=== PATIENT | male | born 1980 | race Caucasian/White ===

== ENCOUNTER 2020-12-23 15:51 | Emergency (ER) | payer OTHER, SELFPAY ==
--- NOTE | ~2020-12-23 | XR_ITS ---
XR ankle LT min 3V 12/23/2020 16:10 INDICATION: Left ankle pain PROCEDURE: 4 views left COMPARISON: No prior studies for comparison. FINDINGS: Fracture, dislocation or subluxation is not identified. The soft tissues appear within norm al limits. No foreign bodies are identified. IMPRESSION: 1: NO ACUTE BONE OR JOINT ABNORMALITY IDENTIFIED. Reviewed, dictated and finalized at location B.
[2020-12-23 16:01] VITALS: BP 150/95; PULSE 96; RESP 16; TEMP 37.4; O2SAT 99
--- NOTE | 2020-12-23 16:10 | ED.EXTPRO ---
HPI - Extremity Problem General Chief complaint: Extremity Injury, Lower Stated complaint: left foot/ankle pain Time Seen by Provider: 12/23/20 16:10 Source: patient and RN notes reviewed Mode of arrival: ambulatory Limitations: no limitations History of Present Illness HPI Narrative: Isidro is a 40-year-old male patient ambulate did into the [employer]. Patient states 1 week ago he was camping and walked into the fire ring. Patient has an abrasion on his left pérez bruising around his left ankle and foot. Patient has patient has been you cleaning the wound twice daily. Patient has been using Neosporin and a bandage to abrasion. MD Complaint: joint swelling Related Data Allergies Allergy/AdvReac Type Severity Reaction Status Date / Time No Known Allergies Allergy Mild Unverified 05/30/13 17:22 Review of Systems Review of Systems: CONSTITUTIONAL: Denies body aches, fever, chills, or sweats. EYES: Denies visual changes, redness, or discharge. ENT: Denies rhinorrhea, congestion, sore throat, or otalgia. CARDIOVASCULAR: Denies chest pain, palpitations, or edema. RESPIRATORY: Denies cough or dyspnea. GASTROINTESTINAL: Denies abdominal pain, nausea, vomiting, or diarrhea. GENITOURINARY: Denies dysuria or hematuria. SKIN: Denies rash, itching, large abrasion left pérez with erythema and warmth MUSCULOSKELETAL: Denies back pain, swelling and pain left ankle NEUROLOGIC: Denies headache, numbness, tingling, or weakness. PSYCH: Denies depression or anxiety. PMFSH Comments At time of signature, I have reviewed and agree with nursing past medical, surgical, social and family history unless otherwise noted. Please see nursing chart for further information. There is no relevant family history pertinent to the presenting complaint Exam Narrative: GENERAL: Well-appearing, well-nourished, and in no acute distress. HEAD: Normocephalic, atraumatic. EYES: EOMI. No redness or drainage. Conjunctivae normal. ENT: Mucous membranes pink and moist. Nares clear. No rhinorrhea. NECK: Normal AROM. Supple. MUSCULOSKELETAL: No bony tenderness.; bruising and moderate edema to left medial malleolus, purple bruising to dorsal foot, minimal edema EXTREMITIES: Normal range of motion. SKIN: Warm, dry, no rash. Capillary refill normal. Normal skin turgor; y shaped 5cm abrasion to left pérez, erythematous, warm to touch, green drainage NEURO: No focal deficits. Alert and oriented x3. Gait steady. PSYCH: Normal affect. No signs of depression or anxiety. Course Vital Signs Vital signs: Vital Signs Temperature 37.4 C 12/23/20 16:01 Pulse Rate 96 12/23/20 16:01 Respiratory Rate 16 12/23/20 16:01 Blood Pressure 150/95 H 12/23/20 16:01 Pulse Oximetry 99 12/23/20 16:01 Temperature 37.4 C 12/23/20 16:01 Pulse Rate 96 12/23/20 16:01 Respiratory Rate 16 12/23/20 16:01 Blood Pressure 150/95 H 12/23/20 16:01 Pulse Oximetry 99 12/23/20 16:01 Reviewed. Pt has been instructed to follow up with his PCP regarding his elevated blood pressure today. MDM - Extremity (Nontraumatic) Differential Diagnosis Differential diagnosis: Likely lower extremity edema and other (Ankle fracture, sprained ankle, superficial abrasion) Critical Care Time Critical Care Time Critical Care Time: No Discharge Plan Discharge Clinical Impression: Ankle sprain and strain Cellulitis Qualifiers: Site of cellulitis: extremity Site of cellulitis of extremity: lower extremity Laterality: left Qualified Code(s): L03.116 - Cellulitis of left lower limb Patient Disposition: Home, Self-Care Condition: Stable Instructions: Antibiotic Form, Cellulitis (ED) Additional Instructions: Wash area twice daily with mild soap and water. Wear jenny wrap to left ankle. May use ice for swelling. Take Motrin for pain /inflammation--May take 4 tablets( 200mg ) three times daily. Wear sturdy shoes, elevate ankle when at rest. Follow up with pr
== END 2020-12-23 16:37 | disposition home or self-care (01) ==
PROVIDERS: Emergency Provider Nurse Practitioner Family
DX: S93.402A Sprain of unspecified ligament of left ankle, initial encounter (principal); S96.912A Strain of unspecified muscle and tendon at ankle and foot level, left foot, initial encounter; W22.8XXA Striking against or struck by other objects, initial encounter; L03.116 Cellulitis of left lower limb
CPT/HCPCS: 73610; 99213; G0463

== ENCOUNTER 2023-08-16 10:31 | Observation (INO) | payer OTHER, SELFPAY ==
[2023-08-16] VITALS (35 sets, daily range): BP systolic 90–140; BP diastolic 67–95; PULSE 80–108; RESP 10–24; TEMP 36.1–36.9; O2SAT 94–100; BMI 32.8
--- NOTE | ~2023-08-16 | XR_ITS ---
EXAMINATION: XR chest 2V 08/16/2023 11:12 INDICATION: Chest pain PROCEDURE: 2 view chest COMPARISON: No prior studies for comparison. FINDINGS: The lungs are clear. The cardiomediastinal silhouette is within normal limits. There are no pleural effusions. There is no pneumothorax suspected. IMPRESSION: 1: NO ACUTE CARDIOPULMONARY DISEASE. Reviewed, dictated and finalized at location B.
--- NOTE | 2023-08-16 10:32 | ECG_ITS ---
Test Date: 2023-08-16 10:38:49 Measurements Intervals [place] Rate: 80 P: 61 MI: 162 QRS: -2 QRSD: 97 T: 31 QT: 356 QTc: 412 Interpretive Statements SINUS RHYTHM LOW QRS VOLTAGE IN PRECORDIAL LEADS [QRS DEFLECTION < 1.0 mV IN CHEST LEADS] INCOMPLETE RIGHT BUNDLE BRANCH BLOCK No previous ECG available for comparison Electronically Signed On 08-16-2023 10:54:18 CDT by Abhijit Jiménez M.D.
[2023-08-16] MEDS: ASPIRIN 81 MG CHEWABLE TABLET 324 MG PO (10:42)
[2023-08-16 10:54] LABS: Basophils Percent Auto 0.4 % (0.2-1.2); Eosinophils Absolute Auto 0.1 K/mm3 (0-0.3); Eosinophils Percent Auto 1.4 % (0-4.4); Hematocrit 45.7 % (42.0-52.0); Hemoglobin 15.1 g/dL (14.0-18.0); Immature Granulocyte Absolute 0.02 K/mm3 (0.00-0.031); Immature Granulocyte Percent A 0.3 % (0-0.5); Lymphocytes Absolute Auto 0.94 K/mm3 (0.9-3.2); Mean Corpuscular Hemoglobin 29.1 pg (26-34); Mean Corpuscular Volume 88.1 fl (80-100); Mean Platelet Volume 9.9 fl (7.4-10.4); Monocytes Absolute Auto 0.9 K/mm3 (0.1-0.6); Monocytes Percent Auto 11.9 % (2.6-8.5); Neutrophils Absolute Auto 5.3 K/mm3 (1.3-6.7); Platelet Count Result 174 k/mm3 (150-375); Red Blood Count 5.19 M/mm3 (4.6-6.20); Red Cell Distribution Width 13.9 % (11.5-14.5); White Blood Count 7.3 K/mm3 (4.5-10.0)
[2023-08-16 11:04] LABS: Partial Thromboplastin Time 31.3 Seconds (22.3-36.8); Prothrombin Time 13.5 Seconds (11.1-14.7)
--- NOTE | 2023-08-16 11:05 | ED.CHESTPAIN ---
HPI - Chest Pain General Chief Complaint: Chest Pain <Anjelica Garcia PA-C - Last Filed: 08/16/23 13:20> Stated Complaint: chest pain <VINCENT Nguyen Last Filed: 08/16/23 13:20> Time Seen by Provider: 08/16/23 10:55 <VINCENT Nguyen Last Filed: 08/16/23 13:20> Source: patient <VINCENT Nguyen Last Filed: 08/16/23 13:20> Mode of arrival: ambulatory <VINCENT Nguyen Last Filed: 08/16/23 13:20> Limitations: no limitations <VINCENT Nguyen Last Filed: 08/16/23 13:20> History of Present Illness HPI narrative: This is a 43 year old male that presents to the ER for chest pain ongoing since last night. Reports he abdominal from work last night and had a fever of 100. He felt generally unwell and had some sweats during the day. Last night after eating some soup in bed. He started to experience substernal chest discomfort. He describes as a pressure. This lasted for several hours. He took a muscle relaxer and was able to fall asleep. He woke up this morning with persistent pain. He also reports he has had some pain in his jaw today. He does not have any known history of heart disease. He does report family history. Denies cough, shortness of breath, abdominal pain, vomiting, or diarrhea. <Anjelica Garcia PA-C - Last Filed: 08/16/23 13:20> Related Data Home Medications: Home Medications Medication Instructions Recorded Confirmed lisinopril 10 mg tablet 10 mg PO HS 08/16/23 08/16/23 <VINCENT Nguyen Last Filed: 08/16/23 13:20> Allergies/Adverse Reactions: Allergies Allergy/AdvReac Type Severity Reaction Status Date / Time No Known Allergies Allergy Mild Verified 08/16/23 10:37 <VINCENT Nguyen Last Filed: 08/16/23 13:20> Review of Systems Review of Systems: CONSTITUTIONAL: Reports fever ENT: Denies rhinorrhea, congestion, sore throat CARDIOVASCULAR: Reports chest pain. Denies edema. RESPIRATORY: Denies cough or dyspnea. GASTROINTESTINAL: Denies abdominal pain, nausea, vomiting, or diarrhea. <Anjelica Garcia PA-C - Last Filed: 08/16/23 13:20> All systems reviewed & are unremarkable except as noted in HPI and below <Anjelica Garcia PA-C - Last Filed: 08/16/23 13:20> [facility] Past Medical History Medical History: Medical History (Updated 08/16/23 @ 15:15 by Jeanine Jones DO) Essential hypertension Obesity (BMI 30.0-34.9) Obstructive sleep apnea on CPAP <Anjelica Garcia PA-C - Last Filed: 08/16/23 13:20> Surgical History Surgical History: Surgical History (Updated 08/16/23 @ 15:09 by Jeanine Jones DO) No history of previous surgery <Anjelica Garcia PA-C - Last Filed: 08/16/23 13:20> Family History Family History: Family History (Updated 08/16/23 @ 15:09 by Jeanine Jones DO) Father Heart disease, Onset Age: 60 Mother Arrhythmia <Anjelica Garcia PA-C - Last Filed: 08/16/23 13:20> Social History Social History: Social History (Updated 08/16/23 @ 15:17 by Jeanine Jones DO) Social History: The patient lives with his of approximately 14 years. brittany is at bedside. They have a 16-year-old and 9-year-old child at home. The patient did smoke about half a pack of cigarettes per day for about 5 years but over the last couple of years his only smoked about 5 cigarettes over that same time. He did smoke marijuana quite heavily but cut down in January down to only using marijuana rarely. His last use was August 14, 2023. He does drink 8-10 alcoholic beverages 3 to 4 times a week. Code status: Full code Surrogate decision maker: Brittany () Smoking packs per day: 0.5 Smoking cigarettes per day: 10.0 Years smoked: 3 Smoking pack-years: 1.50 Smoking status: Former smoker Tobacco type: cigarettes Alcohol intake: current Drinks per week: 21 Alcohol use details: 8-10 beers, 3 to 4 times a week Substance use:
[2023-08-16] MEDS: MORPHINE SULFATE (*CRX) 4 MG/ML INJ IV PUSH (11:11)
[2023-08-16] MEDS: PANTOPRAZOLE SODIUM IV 40 MG VIAL IV PUSH (11:11)
[2023-08-16] MEDS: ONDANSETRON INJ 4 MG/2 ML VIAL IV PUSH (11:11)
[2023-08-16 11:17] LABS: Alanine Aminotransferase 55 U/L (6-50); Albumin Level 4.5 g/dL (3.5-5.1); Alkaline Phosphatase 80 U/L (38-126); Anion Gap 8 mmol/L (4-12); Aspartate Amino Transferase 84 U/L (17-59); Bilirubin,Total 0.9 mg/dL (0.2-1.3); Blood Urea Nitrogen 13 mg/dL (9-20); Carbon Dioxide 26 mmol/L (22-30); Chloride 103 mmol/L (98-107); Estimated CRCL calculation 111 ml/min; Estimated Glomerular Filt Rate > 60; Glucose 148 mg/dL (65-110); Lipase 75 U/L (23-300); Potassium 4.2 mmol/L (3.4-5.0); Sodium 137 mmol/L (137-145)
[2023-08-16] MEDS: HEPARIN SOD/D5W 100 UNITS/ML 25,000 UNITS/250 ML BAG 12.24 UNITS IV CONT (11:55)
[2023-08-16] MEDS: HEPARIN SODIUM 5,000 UNITS/ML VIAL 4000 UNITS IV PUSH (12:03)
--- NOTE | 2023-08-16 12:14 | ECG_ITS ---
Test Date: 2023-08-16 12:11:54 Measurements Intervals [place] Rate: 93 P: 44 GA: 164 QRS: -21 QRSD: 97 T: 23 QT: 349 QTc: 434 Interpretive Statements SINUS RHYTHM LOW QRS VOLTAGE IN PRECORDIAL LEADS [QRS DEFLECTION < 1.0 mV IN CHEST LEADS] INCOMPLETE RIGHT BUNDLE BRANCH BLOCK NO SIGNIFICANT CHANGES Electronically Signed On 08-16-2023 16:04:08 CDT by Abhijit Jiménez M.D.
[2023-08-16 12:22] LABS: Influenza A QL RT-PCR Negative (Negative); Influenza B QL RT-PCR Negative (Negative); RSV RNA, RT-PCR Negative (Negative); SARS-CoV-2 RNA PCR Negative (Negative)
[2023-08-16 12:25] LABS: Cholesterol 174 mg/dL (0-200); HDL Direct 31 mg/dL; Triglycerides 226 mg/dL (<150)
--- NOTE | 2023-08-16 12:31 | PM.IMHP ---
H&P: HPI History of Present Illness Date/Time: 08/16/23 12:31 Chief Complaint: Chest pain Narrative: 43-year-old male with a past medical history of obesity, essential hypertension and obstructive sleep apnea who presented to the ER via private vehicle due to chest pain. The patient reported that he had been feeling generally ill for 2 days with body aches, chills and fever up to 100.4?. Is been accompanied by an occasional nonproductive cough. His is at bedside reports the patient also had misfortune of tearing off of portion of his toenail until it bled and then they walked around a fair ground last week. The patient denies any other upper respiratory symptoms, nasal congestion, nausea, vomiting or other symptoms of illness. His chest pain started last night and was substernal in nature. The pain lasted about an hour and half and was unrelieved despite taking cyclobenzaprine and naproxen. Eventually he was able to fall asleep and then woke up at around 08:15 in the morning due to recurrent chest pain. At that time is pain had returned and was a 6/10 in intensity. It radiated up to his jaw and down his left arm. The pain was aching in nature. The pain was relieved after he received morphine in the ER. Initial EKG in the ER demonstrated minimal changes in lead 1 and aVL. Initial troponin was elevated at 9. Patient was evaluated by Cardiology and taken directly to the incinerator plant laborer where he was found to have no evidence of obstructive coronary artery disease. I evaluated the patient after incinerator plant laborer when he was in the [facility]. Review of Systems Review of Systems: 12 systems were reviewed with pertinent positives and negatives per HPI. Except as documented in the HPI, all other systems were reviewed and are negative. Patient does report chronic urinary frequency but reports drinking a lot of water all the time. He denies dysuria. He denies any known ill contacts. [facility] Past Medical History Medical History (Updated 08/16/23 @ 15:15 by Jeanine Jones DO) Essential hypertension Obesity (BMI 30.0-34.9) Obstructive sleep apnea on CPAP Surgical History Surgical History (Updated 08/16/23 @ 15:09 by Jeanine Jones DO) No history of previous surgery Family History Family History (Updated 08/16/23 @ 15:09 by Jeanine Jones DO) Father Heart disease, Onset Age: 60 Mother Arrhythmia Social History Social History (Updated 08/16/23 @ 15:17 by Jeanine oJnes DO) Social History: The patient lives with his of approximately 14 years. brittany is at bedside. They have a 16-year-old and 9-year-old child at home. The patient did smoke about half a pack of cigarettes per day for about 5 years but over the last couple of years his only smoked about 5 cigarettes over that same time. He did smoke marijuana quite heavily but cut down in January down to only using marijuana rarely. His last use was August 14, 2023. He does drink 8-10 alcoholic beverages 3 to 4 times a week. Code status: Full code Surrogate decision maker: Brittany () Smoking packs per day: 0.5 Smoking cigarettes per day: 10.0 Years smoked: 5 Smoking pack-years: 2.50 Smoking status: Former smoker Alcohol intake: current Drinks per week: 30 Alcohol use details: 8-10 beers, 3 to 4 times a week Substance use type: marijuana Meds Home Medications and Allergies Home Medications Medication Instructions Recorded Confirmed Type lisinopril 10 mg tablet 10 mg DAILY 08/16/23 08/16/23 History Allergies Allergy/AdvReac Type Severity Reaction Status Date / Time No Known Allergies Allergy Mild Verified 08/16/23 10:37 Vital Signs Vital Signs - 24 hr 08/16/23 10:34 08/16/23 10:38 08/16/23 10:36 Temperature 97.9 F Pulse Rate 97 86 95 Respiratory Rate 20 17 Blood Pressure 123/95 H Pulse Oximetry 96 96 Oxygen Delivery Room Air 08/16/23 10:45 08/16/23 10:46 08/16/23 11:00 Temp
[2023-08-16 12:36] LABS: LDL Cholesterol Direct 114 mg/dL
--- NOTE | 2023-08-16 12:57 | PM.CNCAR ---
Assessment and Plan Assessment and plan (1) Essential hypertension: Code(s): I10 - Essential (primary) hypertension Status: Acute (2) Chest pain due to myocardial ischemia: Qualifiers: Ischemic chest pain type: unstable angina pectoris Qualified Code(s): I20.0 - Unstable angina Code(s): I25.9 - Chronic ischemic heart disease, unspecified Status: Acute Plan NSTEMI: Given NSTEMI, recommend cardiac catheterization. Discussed procedure with the patient, including indication for cath, procedure details, risks vs benefits, alternative management options, etc. Patient agreeable. Will proceed with [facility] today. Patient loaded with ASA 324 mg x 1 in the ED, continue with ASA 81mg once daily. Start high-intensity statin. Further recommendations and plan pending results of LHC. Hypertension: Continue home Lisinopril. ARETHA: Wears CPAP at home. History of Present Illness History of Present Illness Consult date/time: 08/16/23 12:57 Requesting physician: Anjelica Garcia PA-C Consult reason: chest pain Reason For Visit: NSTEMI Narrative: We are consulted for NSTEMI. This is a 43 year old male with hypertension and ARETHA on CPAP who presented to [place] ER with chest pain. Had substernal chest pain that first began around 11PM last night. Lasted for about an hour and a half. When we woke up this morning, around 8AM, he had recurrence of substernal chest pain with radiation to jaw and left arm, along with some diaphoresis. The chest pain started to improve when he arrived to the ER and resolved after he received Morphine in the ER. Patient has no prior cardiac history. Father had OR in his 60s. No tobacco use. Patient does occasionally smoke marijuana, last use this past weekend, but patient reports that since January, he has only used twice. Drinks about 8 beers per night a few nights a week. EKG shows sinus rhythm, incomplete right bundle branch block. Initial troponin is 9.03. CXR is negative. Review of Systems Review of Systems: All systems reviewed & are unremarkable except as noted in HPI and below (HPI) [facility] Past Medical History Medical History Essential hypertension Obesity (BMI 30.0-34.9) Family History Family History Other Heart disease Social History Social History Smoking status: Never smoker Meds Home Medications and Allergies Home Medications Medication Instructions Recorded Confirmed Type lisinopril 10 mg tablet mg 08/16/23 History Allergies Allergy/AdvReac Type Severity Reaction Status Date / Time No Known Allergies Allergy Mild Verified 08/16/23 10:37 Vital Signs Vital Signs - 24 hr 08/16/23 10:34 08/16/23 10:38 08/16/23 10:36 Temperature 36.6 C Pulse Rate 97 86 95 Respiratory Rate 20 17 Blood Pressure 123/95 H Pulse Oximetry 96 96 Oxygen Delivery Room Air 08/16/23 10:45 08/16/23 10:46 08/16/23 11:00 Temperature Pulse Rate 90 91 87 Respiratory Rate 18 13 16 Blood Pressure 114/88 Pulse Oximetry 98 95 97 Oxygen Delivery 08/16/23 11:01 08/16/23 11:19 08/16/23 11:20 Temperature Pulse Rate 94 99 94 Respiratory Rate 20 12 15 Blood Pressure 114/87 109/85 Pulse Oximetry 96 94 97 Oxygen Delivery 08/16/23 11:31 08/16/23 11:32 Temperature Pulse Rate 93 97 Respiratory Rate 13 14 Blood Pressure 114/81 Pulse Oximetry 97 96 Oxygen Delivery Exam Const: General: comfortable and no acute distress HENMT: Mouth: Yes moist mucous membranes Eyes: General: appearance normal, both eyes and all related structures Sclera: sclerae normal Neck: Neck: supple Resp: Effort & Inspection: normal respiratory effort Auscultation: clear to auscultation bilaterally Cardio: Rate: regular rate Rhythm: regular rhythm Heart sounds: no murmurs Skin: Gener
--- NOTE | 2023-08-16 13:04 | WPDMODSED ---
Moderate Sedation Note-Pt Data Patient Data Diagnosis: NSTEMI Present Complaint: Chest pain Procedure to be performed/Plan: Coronary angiography, left heart cath, +/- PCI Allergies Allergy/AdvReac Type Severity Reaction Status Date / Time No Known Allergies Allergy Mild Verified 08/16/23 10:37 Home Medications Medication Instructions Recorded Confirmed Type lisinopril 10 mg tablet mg 08/16/23 History Current Medications: Active Medications Aspirin (Aspirin 81 Mg Enteric Tablet) 81 mg PO QAM [facility] Heparin Sodium (Porcine) (Heparin Sodium 5,000 Units/Ml Vial) 4,000 units IV PUSH PRN PRN PRN Reason: aPTT less than 55 seconds Heparin Sodium (Porcine) (Heparin Sodium 5,000 Units/Ml Vial) 3,500 units IV PUSH PRN PRN PRN Reason: aPTT 55 - 70 seconds Heparin Sodium/Dextrose (Heparin Sodium/D5w 100 Units/Ml) 25,000 units in 250 mls @ 12.24 mls/hr IV CONT .[id number] [facility]; Protocol Last Admin: 08/16/23 12:15 Dose: Not Given Sedation/Anesthesia: No previous sedation/anesthesia problems (including family history). [facility] Past Medical History Medical History Essential hypertension Obesity (BMI 30.0-34.9) Family History Family History Other Heart disease Social History Social History Smoking status: Never smoker Mod Sed Physical Exam Physical Exam Pre Procedural Exam: Normal: Appearance, Lungs, Heart Rate, Heart Rhythm, Neuro Exam, Abdomen, Extremities and Skin Hours since solid foods: 15 Hours since liquid intake: 8 Mallampati Classification: class III Internal Medicine - PN: Obj Da Vital Signs Vital Signs: Vital Signs - 24 hr 08/16/23 10:34 08/16/23 10:38 08/16/23 10:36 Temperature 36.6 C Pulse Rate 97 86 95 Respiratory Rate 20 17 Blood Pressure 123/95 H Pulse Oximetry 96 96 Oxygen Delivery Room Air 08/16/23 10:45 08/16/23 10:46 08/16/23 11:00 Temperature Pulse Rate 90 91 87 Respiratory Rate 18 13 16 Blood Pressure 114/88 Pulse Oximetry 98 95 97 Oxygen Delivery 08/16/23 11:01 08/16/23 11:19 08/16/23 11:20 Temperature Pulse Rate 94 99 94 Respiratory Rate 20 12 15 Blood Pressure 114/87 109/85 Pulse Oximetry 96 94 97 Oxygen Delivery 08/16/23 11:31 08/16/23 11:32 Temperature Pulse Rate 93 97 Respiratory Rate 13 14 Blood Pressure 114/81 Pulse Oximetry 97 96 Oxygen Delivery Meds/Results Medications: Active Medications Generic Name Dose Route Start Last Admin Trade Name Freq PRN Reason Stop Dose Admin Aspirin 81 mg 08/17/23 09:00 Aspirin 81 Mg [facility]ic [facility] [place] Heparin Sodium (Porcine) 4,000 units 08/16/23 12:04 Heparin Sodium 5,000 Units/Ml Vial IV PUSH PRN PRN aPTT less than 55 seconds Heparin Sodium (Porcine) 3,500 units 08/16/23 12:04 Heparin Sodium 5,000 Units/Ml Vial IV PUSH PRN PRN aPTT 55 - 70 seconds Heparin Sodium/Dextrose 25,000 units in 250 mls @ 12.24 mls/hr 08/16/23 12:10 08/16/23 12:15 Heparin Sodium/D5w 100 Units/Ml IV CONT Not Given .[id number] [facility] Protocol 1,224 UNITS/HR Radiology Results: ITS Impressions Chest X-Ray 08/16/23 11:24 IMPRESSION: 1: NO ACUTE CARDIOPULMONARY DISEASE. Labs 08/16/23 10:44 08/16/23 10:44 Labs: Laboratory Results - last 24 hr 08/16/23 08/16/23 10:44 11:13 WBC 7.3 RBC 5.19 Hgb 15.1 Hct 45.7 MCV 88.1 MCH 29.1 MCHC 33.0 RDW 13.9 Plt Count 174 MPV 9.9 Immature Gran % (Auto) 0.3 Neut % (Auto) 73.0 Lymph % (Auto) 13.0 L [place] % (Auto) 11.9 H Eos % (Auto) 1.4 Baso % (Auto) 0.4 Lymph # (Auto) 0.94 [place] # (Auto) 0.9 H Eos # (Auto) 0.1 Baso # (Auto) 0.0 Abs Immat Gran (auto) 0.02 Absolute Neuts (auto) 5.3 Absolute Nucleated RBC 0.000 Nucleated RBC
--- NOTE | 2023-08-16 13:05 | WPDCARDPROC ---
Cardiac Cath Procedure Note Date of procedure:: 08/16/23 Performing physician:: CATHETERIZATION LABORATORY REPORT Procedure Date: 08/16/2023 [employer]sembler [employer] Ring: Abhijit Jiménez M.D., [facility]? Referring Physician: Abhijit Jiménez M.D.? Anesthesia: Versed and Fentanyl were ordered and given in my presence at 13:26, procedure ended at 14:01. Supervision of nurse monitored moderate sedation with Versed and Fentanyl was provided for 35 minutes. Total of Versed 1mg and Fentanyl 25mcg were administered by the Novelty Twister Operator RN Joanna Hunter. Pre-op Diagnosis: NSTEMI Post-op Diagnosis: 1. No obstructive coronary arteries. The LAD does not supply the apex -- There is a large caliber OM vessel which supplies the LV apex instead of the LAD 2. Elevated left ventricular end-diastolic pressure of 24mmHg 3. Preserved LVEF on LV angiogram Procedure(s): 1. Moderate sedation 2. Ultrasound-guided access of the right radial artery 3. Coronary angiography 4. Left heart catheterization 5. Left ventricular angiogram Access Site: Right radial artery Brief History and Clinical Indications: Patient is a 43 year old male with hypertension and ARETHA on CPAP who is referred for [facility] for NSTEMI. All risks, benefits and alternatives to left heart catheterization with or without percutaneous coronary intervention was discussed at length with the patient. Risk of complications including but not limited to bleeding, infection, arrhythmia, stroke, worsening kidney function, blood loss, groin hematoma, limb loss, emergency coronary artery bypass grafting, and even were discussed with the patient and all questions were answered. The patient understood and wished to proceed. Time out called, patient name, date of , medical record number, allergies, procedure performed, identify Assembler Dc Field Ring, patient and staff member concurred with accurate data, procedure carried on. Findings: LEFT HEART CATHETERIZATION FINDINGS: 1. Left main: The left main coronary artery is widely patent without any significant obstructive disease. 2. Left anterior descending: The LAD and the diagonal branches have mild luminal irregularities without any significant obstructive angiographic disease. The LAD is a large caliber vessel which tapers to small caliber distally. The LAD does not supply the apex (There is a large caliber OM vessel which supplies the LV apex instead of the LAD). 3. Left circumflex: The left circumflex vessel is co-dominant. The left circumflex artery and the main marginal branches have mild luminal irregularities without any significant obstructive angiographic disease. There is a large caliber OM vessel which supplies the LV apex instead of the LAD. 4. Right coronary artery: The RCA is a co-dominant vessel. The RCA has mild luminal irregularities without any significant obstructive angiographic disease. 5. Left ventricle: A. End-diastolic pressure 24 mmHg. B. LV gram: LVEF appears to be preserved. C. No significant gradient across aortic valve on catheter pullback. Description of Procedure: Informed consent signed and placed in the chart. Patient transferred to laborer fryer farm room. Prepped and draped in usual sterile fashion. 2% lidocaine injected subcutaneously in right wrist area. 22-gauge venipuncture catheter used to access the right radial artery under ultrasound guidance. 6-FR slender sheath placed in right radial artery. Nitroglycerine and Verapamil were given intraarterial through the sheath. Versacore wire advanced under fluoroscopy 5F Tig 4 diagnostic catheter engaged Left Main Coronary Artery. 5F Tig 4 diagnostic catheter engaged Right Coronary Artery Multiple orthogonal angiogram obtained and reviewed 5F Pigtail diagnostic catheter crossed aortic valve to obtain LVEDP, LV angiogram obtained. Hemostasis was achieved by application of TR band. Post Operative Condition: Stable No significant blood loss Disposition: Floor Plan: The patient
--- NOTE | 2023-08-16 13:07 | PC.NURSE ---
Heparin stopped by lab head. Approx 12 ml infused. To lab head via stretcher.
[2023-08-16 14:51] LABS: Basophils Percent Auto 0.4 % (0.2-1.2); Eosinophils Absolute Auto 0.1 K/mm3 (0-0.3); Eosinophils Percent Auto 1.3 % (0-4.4); Hematocrit 43.7 % (42.0-52.0); Hemoglobin 14.8 g/dL (14.0-18.0); Immature Granulocyte Absolute 0.01 K/mm3 (0.00-0.031); Immature Granulocyte Percent A 0.2 % (0-0.5); Lymphocytes Absolute Auto 1.03 K/mm3 (0.9-3.2); Lymphocytes Percent Auto 18.7 % (18.3-44.2); Mean Corpuscular HGB Conc 33.9 g/dl (32-36); Mean Corpuscular Hemoglobin 29.8 pg (26-34); Mean Corpuscular Volume 88.1 fl (80-100); Mean Platelet Volume 9.8 fl (7.4-10.4); Monocytes Absolute Auto 0.6 K/mm3 (0.1-0.6); Monocytes Percent Auto 10.5 % (2.6-8.5); Neutrophils Absolute Auto 3.8 K/mm3 (1.3-6.7); Neutrophils Percent Auto 68.9 % (45.5-73.1); Platelet Count Result 163 k/mm3 (150-375); Red Blood Count 4.96 M/mm3 (4.6-6.20); Red Cell Distribution Width 14.2 % (11.5-14.5); White Blood Count 5.5 K/mm3 (4.5-10.0)
[2023-08-16] MEDS: SODIUM CHLORIDE 0.9% IV 1,000 ML 125 ML IV CONT (15:00)
[2023-08-16 15:01] LABS: Prothrombin Time 13.9 Seconds (11.1-14.7)
[2023-08-16 15:04] LABS: Partial Thromboplastin Time 140.7 Seconds (22.3-36.8)
[2023-08-16 15:26] LABS: CRP 5.7 mg/dL (<1.0)
[2023-08-16 15:44] LABS: Erythrocyte Sedimentation Rate 18 mm/hr (0-20)
--- NOTE | 2023-08-16 17:50 | ADMGEN ---
This patient, Isidro Sargent, was admitted to IMU Room 210-01 @ @ 1700 from [facility]. From ED pt went directly for CARDIAC CATH . Patient/family oriented to hospital policies and general routines including ID bracelet, bed and alarms, visiting hours, pain management, procedures, bathroom and other care routines, personal items, smoking policy, room service/diet, and visiting hours. IVF infusing at 125 cc/hr site WNL. armboard to right forearm /hand- post R radial procedure site; dressing to radial site CDI Information on how to activate the Rapid Response Team has been discussed. Patient/Family are encouraged to report perceived risks to care and to ask questions if they do not understand what they are told or what they should do.
[2023-08-16 18:46] LABS: Hepatitis B Surface Antigen Negative (Negative)
[2023-08-16 18:50] LABS: HAV RESULT Negative (Negative); Hepatitis B Core IgM Result Negative (Negative)
[2023-08-16 19:18] LABS: Hepatitis C Virus Antibody Negative (Negative)
[2023-08-16] MEDS: ACETAMINOPHEN 500 MG TABLET 1000 MG PO (20:15)
[2023-08-16] MEDS: ATORVASTATIN 40 MG TABLET 80 MG PO (20:15)
--- NOTE | 2023-08-16 22:18 | PC.NURSE ---
Patient had a couple drips of blood from cath site. Quarter size swelling without discoloration just proximal to cath site. Dr. Chaney ordered to hold pressure for five minutes and apply pressure dressing, careful not to occlude circulation to hand. Charge nurse aware.
[2023-08-16] MEDS: WATER FOR IRRIGATION, STERILE 1,000 ML BOTTLE 1000 ML (23:16)
[2023-08-16] MEDS: lisinopriL 10 MG TABLET PO (23:16)
[2023-08-17] VITALS (15 sets, daily range): BP systolic 98–117; BP diastolic 62–78; PULSE 53–90; RESP 12–20; TEMP 35.7–36.8; O2SAT 96–99
--- NOTE | 2023-08-17 | ECHO_ITS ---
Patient Info Name: Isidro Sargent Age: 43 years : 1980 Gender: Male Ht: 70 in Wt: 226 lbs BSA: 2.28 m2 HR: 75 bpm BP: 98 / 69 mmHg Heart Rhythm: Sinus Rhythm Technical Quality: Good Exam Date: 08/17/2023 8:56 AM Exam Location: Echo Lab Patient Status: Inpatient Admit Date: 08/16/2023 Staff Ordering Physician: Abhijit Jiménez MD (lakia/shay) Practice Representative: Nick Camacho RDCS Attending Provider: Jeanine Jones DO Referring Physician: Tino REDD; Exam Type: CA echo dop color flow w con Study Info Indications I21.4 - Non-ST elevation (NSTEMI) myocardial infarction Complete two-dimensional, color flow and Doppler transthoracic echocardiogram is performed with contrast to opacify the left ventricle and to improve the deliniation of the left ventricle endocardial borders. Contrast/Agitated Saline Contrast/Ag. Saline: Definity Amount: 5.00 ml Existing IV Access: Yes Summary 1. Left ventricular chamber dimension is normal. 2. Left ventricular systolic function is normal, estimated at 55-60%. 3. The left ventricular diastolic function is grade I diastolic dysfunction. 4. Right ventricular systolic function is normal. 5. There is mild mitral valve regurgitation. Left Ventricle Left ventricular chamber dimension is normal. Left ventricular systolic function is normal, estimated at 55-60%. There is no increased left ventricular wall thickness. The left ventricular diastolic function is grade I diastolic dysfunction. Right Ventricle Right ventricular chamber dimension is normal. Right ventricular systolic function is normal. Left Atria Left atrial chamber dimension is normal. Right Atria Right atrial chamber dimension is normal. Atrial Septum Intact interatrial septum visualized by color flow imaging. Aortic Valve The aortic valve is not well visualized. There is no aortic valve stenosis. There is no aortic valve regurgitation. Pulmonic Valve The pulmonic valve is not well visualized. There is trace pulmonic regurgitation. Mitral Valve The mitral valve has normal leaflets. There is mild mitral valve regurgitation. Tricuspid Valve There is trace tricuspid valve regurgitation. Pericardium/Pleural There is no pericardial effusion. Inferior Vena Cava Normal inferior vena cava with >50% collapse upon inspiration consistent with normal right atrial pressure, 3 mmHg. Aorta The aortic root size at the sinus of Valsalva is normal. Left Ventricular Outflow Tract Name Value Normal LVOT 2D LVOT Diameter 2.27 cm LVOT Doppler LVOT Peak Gradient 7 mmHg LVOT Mean Gradient 4 mmHg LVOT VTI 25.19 cm LVOT VTI/AV VTI Ratio 1.07 LVOT Stroke Volume 101.75 ml LVOT CO 7.98 l/min LVOT CI 3.50 L/min/m2 Pulmonic Valve Name Value Normal PV Doppler
--- NOTE | 2023-08-17 03:30 | PC.NURSE ---
Charge nurse assessed hematoma to right wrist. Area edematous. light blue to normal color. soft. radial pulse strong. continuous pulse ox in place continues to read 97 to 100% on right thumb. capillary refill good. Dr. Easton notified of increased area of hematoma. Received order to continue pressure dressing and monitor.
[2023-08-17 04:45] LABS: Basophils Percent Auto 0.4 % (0.2-1.2); Eosinophils Absolute Auto 0.2 K/mm3 (0-0.3); Eosinophils Percent Auto 3.7 % (0-4.4); Hematocrit 41.6 % (42.0-52.0); Hemoglobin 13.6 g/dL (14.0-18.0); Immature Granulocyte Absolute 0.03 K/mm3 (0.00-0.031); Immature Granulocyte Percent A 0.7 % (0-0.5); Lymphocytes Absolute Auto 1.32 K/mm3 (0.9-3.2); Lymphocytes Percent Auto 28.8 % (18.3-44.2); Mean Corpuscular HGB Conc 32.7 g/dl (32-36); Mean Corpuscular Hemoglobin 29.5 pg (26-34); Mean Corpuscular Volume 90.2 fl (80-100); Mean Platelet Volume 9.9 fl (7.4-10.4); Monocytes Absolute Auto 0.7 K/mm3 (0.1-0.6); Monocytes Percent Auto 15.3 % (2.6-8.5); Neutrophils Absolute Auto 2.4 K/mm3 (1.3-6.7); Neutrophils Percent Auto 51.1 % (45.5-73.1); Platelet Count Result 152 k/mm3 (150-375); Red Blood Count 4.61 M/mm3 (4.6-6.20); Red Cell Distribution Width 14.4 % (11.5-14.5); White Blood Count 4.6 K/mm3 (4.5-10.0)
--- NOTE | 2023-08-17 06:18 | PC.NURSE ---
Dr. perez assessed patient's wrist around 0400. stated it looked good. Continue to monitor
[2023-08-17] MEDS: CLOPIDOGREL BISULFATE 75 MG TABLET PO (08:43)
[2023-08-17] MEDS: ATORVASTATIN 40 MG TABLET 80 MG PO (08:43)
[2023-08-17] MEDS: ASPIRIN 81 MG ENTERIC TABLET PO (08:43)
[2023-08-17] MEDS: PERFLUTREN LIPID MICROSPHERES 1.5 ML VIAL DILUTED TO 10 ML TOTAL VOLUME IV PUSH (09:21)
--- NOTE | 2023-08-17 09:21 | IVDEFINITY ---
Prior to administration of IV Definity the patient was educated on the risks and benefits of the imaging enhancing agent including potential adverse side effects. The patient verbalized understanding. Allergies were verified. No exclusion criteria were identified and at least one of the following inclusion criteria were met: 1) physician request, 2) patient technically difficult to image (per the [place] [employer] guidelines of two or more segments not discernable within the apical view), or 3) questionable left ventricular function. ?
[2023-08-17 09:49] LABS: Alanine Aminotransferase 56 U/L (6-50); Albumin Level 3.8 g/dL (3.5-5.1); Alkaline Phosphatase 72 U/L (38-126); Anion Gap 4 mmol/L (4-12); Aspartate Amino Transferase 74 U/L (17-59); Bilirubin,Total 0.8 mg/dL (0.2-1.3); Blood Urea Nitrogen 13 mg/dL (9-20); Calcium 8.5 mg/dL (8.4-10.2); Carbon Dioxide 28 mmol/L (22-30); Chloride 105 mmol/L (98-107); Estimated CRCL calculation 101 ml/min; Estimated Glomerular Filt Rate > 60; Glucose 119 mg/dL (65-110); Magnesium 2.1 mg/dL (1.6-2.3); Potassium 4.2 mmol/L (3.4-5.0); Sodium 137 mmol/L (137-145)
[2023-08-17 10:09] LABS: Hemoglobin A1C 5.5 % (<5.7)
--- NOTE | 2023-08-17 10:32 | PM.PNCARD ---
Progress Note: A&P Assessment and Plan (1) Non-STEMI (non-ST elevated myocardial infarction): Code(s): I21.4 - Non-ST elevation (NSTEMI) myocardial infarction Status: Acute Assessment and Plan: Cardiac catheterization showed: 1. No obstructive coronary arteries. The LAD does not supply the apex -- There is a large caliber OM vessel which supplies the LV apex instead of the LAD 2. Elevated left ventricular end-diastolic pressure of 24mmHg 3. Preserved LVEF on LV angiogram Given cath findings, will treat patient as MINOCA for now with DAPT, high intensity statin. Patient has been having fevers at home prior to admission -- myocarditis is on the differential. Echocardiogram shows preserved LVEF, no significant valvular disease, no pericardial effusion. Infectious workup as per the primary team -- CRP is elevated, but ESR is normal. Blood cultures thus far are negative. Given concern for possible myocarditis, will obtain cardiac MRI as an outpatient. (2) Essential hypertension: Code(s): I10 - Essential (primary) hypertension Status: Acute Assessment and Plan: Stable. Continue home Lisinopril. (3) Obstructive sleep apnea on CPAP: Code(s): G47.33 - Obstructive sleep apnea (adult) (pediatric) Status: Acute Assessment and Plan: Wears CPAP at night. (4) Heavy alcohol use: Code(s): F10.90 - Alcohol use, unspecified, uncomplicated Status: Acute Assessment and Plan: Encourage cessation. Plan Recommendations and plan discussed with Hospitalist. Subjective Date/time seen: 08/17/23 10:32 Interval history: Reason for visit: NSTEMI HPI: We are consulted for NSTEMI. This is a 43 year old male with hypertension and ARETHA on CPAP who presented to [place] ER with chest pain. Had substernal chest pain that first began around 11PM last night. Lasted for about an hour and a half. When we woke up this morning, around 8AM, he had recurrence of substernal chest pain with radiation to jaw and left arm, along with some diaphoresis. The chest pain started to improve when he arrived to the ER and resolved after he received Morphine in the ER. Patient has no prior cardiac history. Father had [place] in his 60s. No tobacco use. Patient does occasionally smoke marijuana, last use this past weekend, but patient reports that since January, he has only used twice. Drinks about 8 beers per night a few nights a week. EKG shows sinus rhythm, incomplete right bundle branch block. Initial troponin is 9.03. CXR is negative. Date of service 08/16: No recurrence of chest pain, otherwise feeling well. Tele without any arrhythmias. Review of Systems Review of Systems: All systems reviewed & are unremarkable except as noted in HPI and below (HPI) Exam Const: General: comfortable and no acute distress HENMT: Mouth: Yes moist mucous membranes Eyes: General: appearance normal, both eyes and all related structures Sclera: sclerae normal Resp: Effort & Inspection: normal respiratory effort Cardio: Rate: regular rate Rhythm: regular rhythm Skin: General skin exam: normal color Neuro: Speech: normal speech Psych: Mental Status: mental status grossly normal Affect: normal affect Objective Data Vital Signs Vital Signs: Vital Signs - 24 hr 08/16/23 10:34 08/16/23 10:38 08/16/23 10:36 Temperature 36.6 C Pulse Rate 97 86 95 Respiratory Rate 20 17 Blood Pressure 123/95 H Pulse Oximetry 96 96 Oxygen Delivery Room Air Fraction of Inspired Oxygen 08/16/23 10:45 08/16/23 10:46 08/16/23 11:00 Temperature Pulse Rate 90 91 87 Respiratory Rate 18 13 16 Blood Pressure 114/88 Pulse Oximetry 98 95 97 Oxygen Delivery Fraction of Inspired Oxygen 08/16/23 11:01 08/16/23 11:19 08/16/23 11:20 Temperature Pulse Rate 94 99 94 Respiratory Rate 20 12 15 Blood Pressure 114/87 109/85 Pulse Oximetry 96 94 97 Oxygen Delivery Fraction of Inspired Oxygen
--- NOTE | 2023-08-17 13:04 | PM.IMPN ---
Progress Note: A&P Assessment and Plan (1) Transaminitis: Code(s): R74.01 - Elevation of levels of liver transaminase levels Status: Acute (2) Heavy alcohol use: Code(s): F10.90 - Alcohol use, unspecified, uncomplicated Status: Acute (3) Obstructive sleep apnea on CPAP: Code(s): G47.33 - Obstructive sleep apnea (adult) (pediatric) Status: Acute (4) Essential hypertension: Code(s): I10 - Essential (primary) hypertension Status: Acute (5) Chest pain due to myocardial ischemia: Qualifiers: Ischemic chest pain type: unstable angina pectoris Qualified Code(s): I20.0 - Unstable angina Code(s): I25.9 - Chronic ischemic heart disease, unspecified Status: Acute Plan 43-year-old male with a past medical history of obesity, essential hypertension and obstructive sleep apnea who presented to the ER via private vehicle due to chest pain. Initial EKG in the ER demonstrated minimal changes in lead 1 and aVL. Initial troponin was elevated at 9. Patient was evaluated by Cardiology and taken directly to the [facility] where he was found to have no evidence of obstructive coronary artery disease. 1. Chest pain: Status post cardiac catheterization Cardiac catheterization showed: 1. No obstructive coronary arteries. The LAD does not supply the apex -- There is a large caliber OM vessel which supplies the LV apex instead of the LAD 2. Elevated left ventricular end-diastolic pressure of 24mmHg 3. Preserved LVEF on LV angiogram Given cath findings, will treat patient as MINOCA for now with DAPT, high intensity statin Concern for possible myocarditis as differential, plan for cardiac MRI as an outpatient 2. Fevers: Pending blood culture RSV, flu, COVID were negative Chest x-ray was unremarkable Acute hepatitis panel was negative Mildly elevated liver function 3. Due to prophylaxis: Heparin subQ 4. Code status: Full 5. Disposition: Anticipate discharge within next 24 hours if infectious workup is negative Time Spent With Patient Time with patient: 15 - 25 minutes Subjective Date/time seen: 08/17/23 13:04 Interval history: Status post cardiac cath last night No fevers Review of Systems Review of Systems: All systems reviewed & are unremarkable except as noted in HPI and below (HPI) Exam Const: General: comfortable HENMT: Mouth: Yes moist mucous membranes Eyes: Sclera: sclerae normal Neck: Neck: supple Resp: Effort & Inspection: normal respiratory effort Auscultation: clear to auscultation bilaterally Cardio: Rate: regular rate Rhythm: regular rhythm GI: GI Palp: Yes Soft to palpation Auscultation: normal bowel sounds Skin: General skin exam: normal color Neuro: Speech: normal speech Extrem: General: normal to inspection Psych: Mental Status: mental status grossly normal Objective Data Vital Signs Vital Signs: Vital Signs - 24 hr 08/16/23 14:22 08/16/23 15:00 08/16/23 15:45 Temperature Pulse Rate 93 83 87 Respiratory Rate 10 L 21 H 21 H Blood Pressure 106/74 90/75 L 90/67 L Pulse Oximetry 97 97 96 Oxygen Delivery Room Air Room Air Room Air Fraction of Inspired Oxygen 08/16/23 14:30 08/16/23 14:45 08/16/23 15:15 Temperature Pulse Rate 92 84 87 Respiratory Rate 11 L 17 21 H Blood Pressure 99/73 L 93/71 L 90/67 L Pulse Oximetry 94 94 96 Oxygen Delivery Room Air Room Air Room Air Fraction of Inspired Oxygen 08/16/23 16:15 08/16/23 16:00 08/16/23 17:10 Temperature 98.5 F 98.5 F Pulse Rate 93 108 H 108 H Respiratory Rate 14 24 H 24 H Blood Pressure 99/69 L 111/72 111/72 Pulse Oximetry 96 97 97 Oxygen Delivery Room Air Fraction of Inspired Oxygen 08/16/23 17:30 08/16/23 17:15 08/16/23 18:00 Temperature Pulse Rate 92 103 H 91 Respiratory Rate Blood Pressure Pulse Oximetry Oxygen Delivery Fraction of Inspired Oxygen 08/16/23 20:00 08/17/23 00:00 08/16/23 20:0
[2023-08-17] MEDS: HEPARIN SODIUM 5,000 UNITS/ML VIAL 5000 UNITS SUB-Q (20:03)
[2023-08-17] MEDS: lisinopriL 10 MG TABLET PO (20:03)
[2023-08-18] VITALS: PULSE 67
[2023-08-18 00:18] VITALS: BP 119/72; PULSE 74; RESP 20; TEMP 36.5; O2SAT 99
[2023-08-18 04:00] VITALS: PULSE 75; O2SAT 97
[2023-08-18 04:55] LABS: Basophils Percent Auto 0.6 % (0.2-1.2); Eosinophils Absolute Auto 0.3 K/mm3 (0-0.3); Hematocrit 41.8 % (42.0-52.0); Hemoglobin 13.8 g/dL (14.0-18.0); Immature Granulocyte Absolute 0.02 K/mm3 (0.00-0.031); Immature Granulocyte Percent A 0.4 % (0-0.5); Lymphocytes Absolute Auto 2.01 K/mm3 (0.9-3.2); Lymphocytes Percent Auto 38.7 % (18.3-44.2); Mean Corpuscular Hemoglobin 29.4 pg (26-34); Mean Corpuscular Volume 89.1 fl (80-100); Mean Platelet Volume 9.9 fl (7.4-10.4); Monocytes Absolute Auto 0.7 K/mm3 (0.1-0.6); Monocytes Percent Auto 13.7 % (2.6-8.5); Neutrophils Absolute Auto 2.2 K/mm3 (1.3-6.7); Neutrophils Percent Auto 41.6 % (45.5-73.1); Platelet Count Result 183 k/mm3 (150-375); Red Blood Count 4.69 M/mm3 (4.6-6.20); Red Cell Distribution Width 13.8 % (11.5-14.5); White Blood Count 5.2 K/mm3 (4.5-10.0)
[2023-08-18 05:04] LABS: Anion Gap 8 mmol/L (4-12); Blood Urea Nitrogen 15 mg/dL (9-20); Calcium 8.9 mg/dL (8.4-10.2); Carbon Dioxide 28 mmol/L (22-30); Chloride 103 mmol/L (98-107); Estimated CRCL calculation 101 ml/min; Estimated Glomerular Filt Rate > 60; Glucose 102 mg/dL (65-110); Potassium 3.8 mmol/L (3.4-5.0); Sodium 139 mmol/L (137-145)
[2023-08-18 05:31] VITALS: BP 119/75; PULSE 65; RESP 20; TEMP 36.5; O2SAT 99
[2023-08-18 07:47] VITALS: BP 112/69; PULSE 79; RESP 20; TEMP 35.7; O2SAT 97
[2023-08-18 08:00] VITALS: PULSE 98
[2023-08-18] MEDS: ATORVASTATIN 40 MG TABLET 80 MG PO (08:24)
[2023-08-18] MEDS: HEPARIN SODIUM 5,000 UNITS/ML VIAL 5000 UNITS SUB-Q (08:24)
[2023-08-18] MEDS: CLOPIDOGREL BISULFATE 75 MG TABLET PO (08:24)
[2023-08-18] MEDS: ASPIRIN 81 MG ENTERIC TABLET PO (08:24)
--- NOTE | 2023-08-18 10:43 | PM.PNCARD ---
Progress Note: A&P Assessment and Plan (1) Non-STEMI (non-ST elevated myocardial infarction): Code(s): I21.4 - Non-ST elevation (NSTEMI) myocardial infarction Status: Acute Assessment and Plan: Cardiac catheterization showed: 1. No obstructive coronary arteries. The LAD does not supply the apex -- There is a large caliber OM vessel which supplies the LV apex instead of the LAD 2. Elevated left ventricular end-diastolic pressure of 24mmHg 3. Preserved LVEF on LV angiogram Given cath findings, will treat patient as MINOCA for now with DAPT, high intensity statin. Patient has been having fevers at home prior to admission -- myocarditis is on the differential. Echocardiogram shows preserved LVEF, no significant valvular disease, no pericardial effusion. Infectious workup negative. Blood cultures negative. Given concern for possible myocarditis, will obtain cardiac MRI as an outpatient (this has been scheduled through our office). (2) Essential hypertension: Code(s): I10 - Essential (primary) hypertension Status: Acute Assessment and Plan: Stable. Continue home Lisinopril. (3) Obstructive sleep apnea on CPAP: Code(s): G47.33 - Obstructive sleep apnea (adult) (pediatric) Status: Acute Assessment and Plan: Wears CPAP at night. (4) Heavy alcohol use: Code(s): F10.90 - Alcohol use, unspecified, uncomplicated Status: Acute Assessment and Plan: Encourage cessation. Plan Recommendations and plan discussed with Hospitalist. Okay to discharge home from my standpoint. Subjective Date/time seen: 08/18/23 10:43 Interval history: Reason for visit: NSTEMI HPI: We are consulted for NSTEMI. This is a 43 year old male with hypertension and ARETHA on CPAP who presented to [place] ER with chest pain. Had substernal chest pain that first began around 11PM last night. Lasted for about an hour and a half. When we woke up this morning, around 8AM, he had recurrence of substernal chest pain with radiation to jaw and left arm, along with some diaphoresis. The chest pain started to improve when he arrived to the ER and resolved after he received Morphine in the ER. Patient has no prior cardiac history. Father had [place] in his 60s. No tobacco use. Patient does occasionally smoke marijuana, last use this past weekend, but patient reports that since January, he has only used twice. Drinks about 8 beers per night a few nights a week. EKG shows sinus rhythm, incomplete right bundle branch block. Initial troponin is 9.03. CXR is negative. Date of service 08/16: No recurrence of chest pain, otherwise feeling well. Tele without any arrhythmias. Date of service 08/17: Feeling well today. Review of Systems Review of Systems: All systems reviewed & are unremarkable except as noted in HPI and below (HPI) Exam Const: General: comfortable and no acute distress HENMT: Mouth: Yes moist mucous membranes Eyes: General: appearance normal, both eyes and all related structures Sclera: sclerae normal Resp: Effort & Inspection: normal respiratory effort Cardio: Rate: regular rate Rhythm: regular rhythm Skin: General skin exam: normal color Neuro: Speech: normal speech Psych: Mental Status: mental status grossly normal Affect: normal affect Objective Data Vital Signs Vital Signs: Vital Signs - 24 hr 08/17/23 11:25 08/17/23 12:00 08/17/23 15:12 Temperature 35.8 C L 36.3 C L Pulse Rate 80 80 87 Respiratory Rate 20 20 Blood Pressure 117/78 106/68 Pulse Oximetry 99 98 Oxygen Delivery 08/17/23 16:00 08/17/23 19:03 08/17/23 20:00 Temperature 36.8 C 36.4 C L Pulse Rate 84 82 78 Respiratory Rate 20 16 Blood Pressure 110/69 107/69 Pulse Oximetry 96 97 Oxygen Delivery 08/17/23 20:00 08/17/23 20:00 08/17/23 21:30 Temperature Pulse Rate 85 85 Respiratory Rate 16 Blood Pressure Pulse Oximetry 97 98 Oxygen Delivery Room Air CPAP 08/18/23
--- NOTE | 2023-08-18 11:04 | PM.DS ---
DS: Admitting Diagnosis Discharge Date 08/18/23 Admitting Diagnosis Chest Pin Fever DS: Discharge Diagnosis Discharge Diagnosis (1) Transaminitis: Code(s): R74.01 - Elevation of levels of liver transaminase levels Status: Acute (2) Heavy alcohol use: Code(s): F10.90 - Alcohol use, unspecified, uncomplicated Status: Acute (3) Obstructive sleep apnea on CPAP: Code(s): G47.33 - Obstructive sleep apnea (adult) (pediatric) Status: Acute (4) Essential hypertension: Code(s): I10 - Essential (primary) hypertension Status: Acute (5) Chest pain due to myocardial ischemia: Qualifiers: Ischemic chest pain type: unstable angina pectoris Qualified Code(s): I20.0 - Unstable angina Code(s): I25.9 - Chronic ischemic heart disease, unspecified Status: Acute DS: Summary Hospital Course Reason for hospitalization: Chest Pain Hospital Course: 43-year-old male with a past medical history of obesity, essential hypertension and obstructive sleep apnea who presented to the ER via private vehicle due to chest pain. Initial EKG in the ER demonstrated minimal changes in lead 1 and aVL. Initial troponin was elevated at 9. Patient was evaluated by Cardiology and taken directly to the laboratory [facility] care [facility] where he was found to have no evidence of obstructive coronary artery disease.Cardiac catheterization showed: 1. No obstructive coronary arteries. The LAD does not supply the apex -- There is a large caliber OM vessel which supplies the LV apex instead of the LAD 2. Elevated left ventricular end-diastolic pressure of 24mmHg 3. Preserved LVEF on LV angiogram Given cath findings, patient will be treated as MINOCA for now with DAPT, high intensity statin.Concern for possible myocarditis as differential, plan for cardiac MRI as an outpatient. With history of fevers at home, prelim infectious workup including blood culture was negative. RSV, flu, COVID were negative as well. Acute hepatitis panel was negative as well. Patient discharged home in stable condition, with advice to follow-up with cardiology as outpatient. Status at Discharge Functional status at discharge: independent ambulation Overall status at discharge: patient is progressing back to baseline Time Spent with Patient Time attestation: Total time spent providing and/or coordinating discharge services: Time spent: Greater than 30 minutes Exam Const: General: comfortable HENMT: Mouth: Yes moist mucous membranes Eyes: Sclera: sclerae normal Neck: Neck: supple Resp: Effort & Inspection: normal respiratory effort Auscultation: clear to auscultation bilaterally Cardio: Rate: regular rate Rhythm: regular rhythm GI: GI Palp: Yes Soft to palpation Auscultation: normal bowel sounds Skin: General skin exam: normal color Neuro: Speech: normal speech Extrem: General: normal to inspection Psych: Mental Status: mental status grossly normal DS: Data Data Completed and Pending Labs on day of discharge: Labs from last 24 hours 08/18/23 04:25 WBC 5.2 RBC 4.69 Hgb 13.8 L Hct 41.8 L MCV 89.1 MCH 29.4 MCHC 33.0 RDW 13.8 Plt Count 183 MPV 9.9 Immature Gran % (Auto) 0.4 Neut % (Auto) 41.6 L Lymph % (Auto) 38.7 [place] % (Auto) 13.7 H Eos % (Auto) 5.0 H Baso % (Auto) 0.6 Lymph # (Auto) 2.01 [place] # (Auto) 0.7 H Eos # (Auto) 0.3 Baso # (Auto) 0.0 Abs Immat Gran (auto) 0.02 Absolute Neuts (auto) 2.2 Absolute Nucleated RBC 0.000 Nucleated RBC % 0.0 Sodium 139 Potassium 3.8 Chloride 103 Carbon Dioxide 28 Anion Gap 8 BUN 15 Creatinine 1.00 Estim Creat Clear Calc 101 Estimated GFR > 60 Glucose 102 Calcium 8.9 Preliminary micro results at discharge 08/16/23 18:50 Blood Culture - Preliminary Blood 08/16/23 18:43 Blood Culture - Preliminary Blood Discharge Plan Discharge Attending physician on discharge: Katrin Marks Consulting providers: Tino
== END 2023-08-18 11:53 | disposition home or self-care (01) ==
LOC: ANHED 12:52 → ANHIMU 13:15
PROVIDERS: Emergency Medicine; Internal Medicine; Admitting Provider Internal Medicine; Emergency Provider Physician Assistant; PCP Family Medicine; Visit Provider Internal Medicine
PROC: 4A023N7 Measurement of Cardiac Sampling and Pressure, Left Heart, Percutaneous Approach (ICD-10-PCS; CPT 93452; principal; 2023-08-16 12:50)
DX: I21.4 Non-ST elevation (NSTEMI) myocardial infarction (principal); I25.9 Chronic ischemic heart disease, unspecified; R74.01 Elevation of levels of liver transaminase levels; I10 Essential (primary) hypertension; G47.33 Obstructive sleep apnea (adult) (pediatric); F17.210 Nicotine dependence, cigarettes, uncomplicated; F12.90 Cannabis use, unspecified, uncomplicated; F10.90 Alcohol use, unspecified, uncomplicated; E66.9 Obesity, unspecified; Z68.32 Body mass index [BMI] 32.0-32.9, adult; Z20.822 Contact with and (suspected) exposure to COVID-19
CPT/HCPCS: 36415; 71046; 80048; 80053; 80061; 80074; 83036; 83690; 83735; 84484; 85025; 85610; 85652; 85730; 86140; 87040; 87637; 93005; 93458; 96365; 96372; 96374; 96375; 99291; A9270; C1769; C1887; C1894; C8929; C9113; G0378; J1644; J2250; J2270; J2305; J2405; J3010; J7030; J7040; Q9957

== ENCOUNTER 2024-01-11 08:45 | Outpatient (RCR) | payer OTHER, SELFPAY ==
[2023-10-11 11:45] VITALS: PULSE 78
== END 2024-01-11 16:00 | disposition home or self-care (01) ==
LOC: ANHCPREHAB 08:45
PROVIDERS: PCP Family Medicine; Visit Provider Internal Medicine
DX: I21.4 Non-ST elevation (NSTEMI) myocardial infarction (principal)
CPT/HCPCS: 93798